=== PATIENT | male | born 1990 | race Caucasian/White ===

== ENCOUNTER 2021-07-23 14:48 | Emergency (ER) | payer OTHER ==
[2021-07-23 14:57] VITALS: TEMP 97.8; BMI 46.7
[2021-07-23] MEDS ORDERED: DEXAMETHASONE 4 MG TABLET (FP) PO ONE (15:54)
[2021-07-23] MEDS: ALBUTEROL SO4 2.5/IPRATROPIUM 0.5 INH SOL 3 ML VIAL.NEB. NEB SCH ×8 (16:05→18:30)
[2021-07-23] MEDS ORDERED: ALBUTEROL SO4 2.5/IPRATROPIUM 0.5 INH SOL 3 ML VIAL.NEB. NEB ONE ×2 (16:07→17:50)
[2021-07-23] MEDS ORDERED: DEXAMETHASONE SOD PHOSPHATE 10 MG/1 ML VIAL ONE (16:07)
[2021-07-23] MEDS ORDERED: ALBUTEROL SO4 2.5/IPRATROPIUM 0.5 INH SOL 3 ML VIAL.NEB. NEB SCH (19:00)
[2021-07-23 19:50] LABS: BASO % 0.3 % (0-2.0); HEMOGLOBIN 15.1 GM/dL (11.7-16.9); LYMPH % 8.9 % (8-40); MCH 27.1 pg (25.7-33.7); MCHC 33.4 g/dl (32.0-35.9); MEAN PLT VOLUME 7.9 fl (7.5-11.1); NEUT % 88.8 % (42.8-82.8); PLATELET COUNT 267 10^3/uL (134-434); RBC 5.56 M/mm3 (4.00-5.60); RDW 14.3 % (11.9-15.9); WHITE BLOOD COUNT 12.4 K/mm3 (4.0-10.0)
[2021-07-23 20:09] LABS: ALBUMIN 4.4 g/dl (3.4-5.0); BLOOD UREA NITROGEN 12.7 mg/dL (7-18); CALCIUM 9.2 mg/dL (8.5-10.1)
[2021-07-23 20:12] LABS: CREATININE 0.7 mg/dL (0.55-1.3)
[2021-07-23 20:14] LABS: BILIRUBIN,TOTAL 0.7 mg/dL (0.2-1); TOT PROT 8.2 g/dl (6.4-8.2)
[2021-07-23 21:23] VITALS: BP 135/81; PULSE 111
== END 2021-07-23 21:24 | disposition home or self-care (01) ==
LOC: JER 14:48
PROC: 3E0F7GC Introduction of Other Therapeutic Substance into Respiratory Tract, Via Natural or Artificial Opening (ICD-10-PCS; principal; 2021-07-23)
DX: J45.901 Unspecified asthma with (acute) exacerbation (principal)
CPT/HCPCS: 36415; 71046-TC-FY; 80053; 85025; 99284-25; C9803; U0003; U0005

== ENCOUNTER 2024-09-27 14:33 | Emergency (ER) | payer BC, OTHER ==
[2024-09-27 14:44] VITALS: BMI 45.6
[2024-09-27] MEDS ORDERED: ALBUTEROL SO4 2.5/IPRATROPIUM 0.5 INH SOL 3 ML VIAL.NEB. NEB ONE (14:51)
[2024-09-27] MEDS: ALBUTEROL SO4 2.5/IPRATROPIUM 0.5 INH SOL 3 ML VIAL.NEB. NEB SCH (15:14)
[2024-09-27] MEDS ORDERED: MAGNESIUM SULFATE IN WATER 2 GM/50 ML IVPB IVPB ONE (15:19)
[2024-09-27] MEDS ORDERED: methylPREDNISolone NA SUCC 125 MG/2 ML VIAL ONE (15:19)
[2024-09-27] MEDS: methylPREDNISolone NA SUCC 125 MG/2 ML VIAL IVPUSH ONE (15:51)
[2024-09-27] MEDS: MAGNESIUM SULFATE IN WATER 2 GM/50 ML IVPB IVPB ONE (15:51)
[2024-09-27 16:53] LABS: BASO % 0.4 % (0-2.0); EOS % 1.3 % (0-4.5); HEMATOCRIT 47.4 % (35.4-49); HEMOGLOBIN 15.9 GM/dL (11.7-16.9); MCHC 33.6 g/dl (32.0-35.9); MEAN CELL VOLUME 80.5 fl (80-96); MEAN PLT VOLUME 8.1 fl (7.5-11.1); MONO % 5.1 % (3.8-10.2); NEUT % 79.2 % (42.8-82.8); PLATELET COUNT 241 10^3/uL (134-434); RBC 5.89 M/mm3 (4.00-5.60); RDW 14.1 % (11.9-15.9); WHITE BLOOD COUNT 11.8 K/mm3 (4.0-10.0)
[2024-09-27 17:18] LABS: POTASSIUM 3.8 mmol/L (3.5-5.1)
[2024-09-27 17:20] LABS: CALCIUM 8.8 mg/dL (8.5-10.1)
[2024-09-27 17:21] LABS: ALBUMIN 4.1 g/dl (3.4-5.0); BLOOD UREA NITROGEN 11.5 mg/dL (7-18)
[2024-09-27 17:24] LABS: CREATININE 0.8 mg/dL (0.55-1.3)
[2024-09-27 17:25] LABS: BILIRUBIN,TOTAL 0.9 mg/dL (0.2-1); TOT PROT 7.8 g/dl (6.4-8.2)
[2024-09-27] MEDS ORDERED: ALBUTEROL SO4 0.083% IH SOL 2.5 MG/3 ML VIAL.NEB. NEB ONE (18:00)
[2024-09-27] MEDS: ALBUTEROL SO4 0.083% IH SOL 2.5 MG/3 ML VIAL.NEB. NEB ONE (18:07)
[2024-09-27] MEDS: SODIUM CHLORIDE 1,000 ML IV STA (18:07)
[2024-09-27 19:08] VITALS: BP 106/78; PULSE 116; RESP 20; TEMP 98.6
== END 2024-09-27 19:08 | disposition home or self-care (01) ==
LOC: JER 14:33
PROC: 3E033GC Introduction of Other Therapeutic Substance into Peripheral Vein, Percutaneous Approach (ICD-10-PCS; principal; 2024-09-27)
PROC: 3E033GC Introduction of Other Therapeutic Substance into Peripheral Vein, Percutaneous Approach (ICD-10-PCS; 2024-09-27)
PROC: 3E0337Z Introduction of Electrolytic and Water Balance Substance into Peripheral Vein, Percutaneous Approach (ICD-10-PCS; 2024-09-27)
PROC: 3E0F7GC Introduction of Other Therapeutic Substance into Respiratory Tract, Via Natural or Artificial Opening (ICD-10-PCS; 2024-09-27)
PROC: 3E0F7GC Introduction of Other Therapeutic Substance into Respiratory Tract, Via Natural or Artificial Opening (ICD-10-PCS; 2024-09-27)
DX: J45.909 Unspecified asthma, uncomplicated (principal); R06.02 Shortness of breath; R05.9 Cough, unspecified; Z20.822 Contact with and (suspected) exposure to COVID-19
CPT/HCPCS: 0241U-QW; 36415; 71045-TC-FY; 80053; 85025; 93005; 93010; 99285-25